=== PATIENT | male | born 1960 | race Caucasian/White ===

== ENCOUNTER 2021-04-14 14:12 | Emergency (ER) | payer OTHER, SELFPAY ==
[2021-04-14 14:27] VITALS: BP 130/87; PULSE 82; TEMP 99; BMI 25.7
== END 2021-04-14 16:20 | disposition home or self-care (01) ==
LOC: FER 14:12
DX: M79.672 Pain in left foot (principal)
CPT/HCPCS: 73630-TC-RT-FY; 99283-25

== ENCOUNTER 2021-06-06 11:13 | Emergency (ER) | payer OTHER ==
[2021-06-06 11:34] VITALS: BP 100/62; PULSE 103; TEMP 98; BMI 25.7
[2021-06-06] MEDS ORDERED: IBUPROFEN 600 MG TABLET (FP) PO ONE ×2 (11:52→11:54)
[2021-06-06] MEDS ORDERED: LIDOCAINE HCL 1%, 10 MG/ML (20ML VIAL) ONE (12:06)
== END 2021-06-06 12:37 | disposition home or self-care (01) ==
LOC: FER 11:13
DX: M84.445A Pathological fracture, left finger(s), initial encounter for fracture (principal)
CPT/HCPCS: 73130-TC-LT-FY; 99284-25